=== PATIENT | female | born 1975 | race African-American/Black ===

== ENCOUNTER 2016-07-05 13:19 | Emergency (ER) | payer BC ==
[2016-07-05] MEDS ORDERED: Sodium Chloride 0.9% 10 ML Syringe FLUSH PRN (13:23)
[2016-07-05] MEDS ORDERED: Sodium Chloride 0.9% 2.5 ML Syringe FLUSH PRN (13:23)
[2016-07-05] MEDS ORDERED: Sodium Chloride 0.9% 1,000 ML IV ONE (13:24)
[2016-07-05] MEDS ORDERED: Famotidine 20 MG/2 ML SDV IVPUSH ONE (13:24)
[2016-07-05] MEDS ORDERED: diphenhydrAMINE 50 MG/ML SDV IVPUSH ONE (13:24)
[2016-07-05] MEDS ORDERED: methylPREDNISolone Sodium Succinate 125 MG/2 ML SDV IVPUSH ONE (13:24)
[2016-07-05] MEDS ORDERED: Racepinephrine 2.25% 0.5 ML Neb Soln NEB ONE (13:25)
--- NOTE | 2016-07-05 13:36 | EDM.PDOC ---
ED HPI Allergic Reaction - General Chief Complaint: Allergic Reaction Stated Complaint: ALLERGIC REACTION Time Seen by Provider: 07/05/16 13:23 Source of Information: Reports: Patient History Limitations: Reports: No limitations - History of Present Illness INITIAL COMMENTS - FREE TEXT/NARRATIVE: History of present illness: [] Patient awoke at 1 PM with difficulty breathing, she does not know she was exposed to anything. She does not know what she is allergic to, she can't talk to 2 hoarseness. Patient states she has several allergies and her response to all other meds her throat closing. She states she's allergic to peanuts however she and Mr. Ramires yesterday without any response. Review of systems: As per history of present illness and below otherwise all systems reviewed and negative. Past medical history: As per history of present illness and as reviewed below otherwise noncontributory. Surgical history: As per history of present illness and as reviewed below otherwise noncontributory. Social history: No reported history of drug or alcohol abuse. Family history: As per history of present illness and as reviewed below otherwise noncontributory. Physical exam: General: Well developed, well nourished in NAD HEENT: Atraumatic, normocephalic, pupils reactive, negative for conjunctival pallor or scleral icterus, mucous membranes moist, throat clear, no erythema there is swelling to the lateral sides pharynx, neck supple, nontender, trachea midline. No stridor Lungs: Clear to auscultation, breath sounds equal bilaterally, chest nontender. No wheezing Heart: S1S2, regular, negative for clicks, rubs, or JVD. Abdomen: Soft, nondistended, nontender. Negative for masses or hepatosplenomegaly. Negative for costovertebral tenderness. Pelvis: Stable nontender. Genitourinary: Deferred. Rectal: Deferred. Extremities: Atraumatic, negative for cords or calf pain. Neurovascular unremarkable. No rashes Neuro: Awake, alert, oriented. Cranial nerves II through XII unremarkable. Cerebellum unremarkable. Motor and sensory unremarkable throughout. Exam nonfocal. Diagnostics: [] Therapeutics: [] Racemic epi., Benadryl, Solu-Medrol, Pepcid given patient had immediate improvement after syncope. Impression: [] Anaphylactic response of unknown etiology Plan: [] Benadryl as needed EpiPen prescribed Definitive disposition and diagnosis as appropriate pending reevaluation and review of above. - Related Data Home Meds: Home Meds EPINEPHrine [Epipen 2-Jeremie] 0.3 mg IJ ASDIRECTED PRN #2 ml 07/05/16 [Rx] ED ROS ALLERGIC REACTION - Review of Systems Review Of Systems: See Below (See history of present illness) ED EXAM GENERAL NO PERIP PULSE - Physical Exam Exam: See Below (See history of present illness) Course - Vital Signs Last Recorded V/S: Last Vital Signs Temp 36.7 C 07/05/16 13:36 Pulse 94 07/05/16 13:36 Resp 20 07/05/16 13:36 BP 122/58 L 07/05/16 13:36 Pulse Ox 96 07/05/16 13:36 - Orders/Labs/Meds Orders: Active Orders 24 hr Category Date Time Status RT Aerosol Therapy [RC] ASDIRECTED Care 07/05/16 13:25 Active Sodium Chloride 0.9% [Normal Saline] 1,000 ml Med 07/05/16 13:24 Active IV .Bolus Sodium Chloride 0.9% [Saline Flush] Med 07/05/16 13:23 Active 10 ml FLUSH ASDIRECTED PRN Sodium Chloride 0.9% [Saline Flush] Med 07/05/16 13:23 Active 2.5 ml FLUSH ASDIRECTED PRN Peripheral IV Insertion Adult [OM.PC] Stat Oth 07/05/16 13:23 Ordered Medication Orders Sodium Chloride (Normal Saline) 1,000 mls @ 999 mls/hr IV .Bolus ONE Stop: 07/05/16 14:24 Last Admin: 07/05/16 13:30 Dose: 999 mls/hr Sodium Chloride (Saline Flush) 10 ml FLUSH ASDIRECTED PRN PRN Reason: Keep Vein Open Last Admin: 07/05/16 13:43 Dose: 10 ml Sodium Chloride (Saline Flush) 2.5 ml FLUSH ASDIRECTED PRN PRN Reason: Keep Vein Open Last Admin: 07/05/16 13:43 Dose: 2.5 ml Meds: Medications Generic Name Dose Route Start Last Admin Trade Name Freq PRN Reason Stop Dose Admin Sodium Chloride 1,000 mls @ 999 mls/hr 07/05/16 13:24 07/05/16 13:30 Normal Saline IV 07/05/16 14:24 999 mls/hr .Bolus ONE Administration Sodium Chloride 10 ml 07/05/16 13:23 07/05/16 13:43 Saline Flush FLUSH 10 ml ASDIRECTED PRN Administration Keep Vein Open Sodium Chloride 2.5 ml 07/05/16 13:23 07/05/16 13:43 Saline Flush FLUSH 2.5 ml ASDIRECTED PRN Administration Keep Vein Open Discontinued Medications Generic Name Dose Route Start Last Admin Trade Name Freq PRN Reason Stop Dose Admin Diphenhydramine HCl 50 mg 07/05/16 13:24 07/05/16 13:39 Benadryl IVPUSH 07/05/16 13:25 50 mg ONETIME ONE Administration Famotidine 20 mg 07/05/16 13:24 07/05/16 13:40 Pepcid IVPUSH 07/05/16 13:25 20 mg ONETIME ONE Administration Methylprednisolone Sodium Succinate 125 mg 07/05/16 13:24 07/05/16 13:42 Solu-Medrol IVPUSH 07/05/16 13:25 125 mg ONETIME ONE Administration Racepinephrine 0.5 ml 07/05/16 13:25 S-2 2.25% NEB 07/05/16 13:26 ONETIME ONE Departure - Departure Time of Disposition: 14:20 Disposition: Home, Self-Care 01 Condition: good Clinical Impression: Anaphylactic reaction Qualifiers: Encounter type: initial encounter Qualified Code(s): T78.2XXA - Anaphylactic shock, unspecified, initial encounter Prescriptions: EPINEPHrine [Epipen 2-Jeremie] 0.3 mg IJ ASDIRECTED PRN #2 ml PRN Reason: Shortness Of Breath Additional Instructions: The following information is given to patients seen in the emergency department who are being discharged to home. This information is to outline your options for follow-up care. We provide all patients seen in our emergency department with a follow-up referral. The need for follow-up, as well as the timing and circumstances, are variable depending upon the specifics of your emergency department visit. If you don't have a primary care physician on staff, we will provide you with a referral. We always advise you to contact your personal physician following an emergency department visit to inform them of the circumstance of the visit and for follow-up with them and/or the need for any referrals to a consulting specialist. The emergency department will also refer you to a specialist when appropriate. This referral assures that you have the opportunity for follow-up care with a specialist. All of these measure are taken in an effort to provide you with optimal care, which includes your follow-up. Under all circumstances we always encourage you to contact your private physician who remains a resource for coordinating your care. When calling for follow-up care, please make the office aware that this follow-up is from your recent emergency room visit. If for any reason you are refused follow-up, please contact the [facility] Emergency Department at and asked to speak to the emergency department charge nurse. [facility] [address] [place] [address] - My Orders Last 24 Hours: My Active Orders 07/05/16 13:23 Sodium Chloride 0.9% [Saline Flush] 10 ml FLUSH ASDIRECTED PRN Sodium Chloride 0.9% [Saline Flush] 2.5 ml FLUSH ASDIRECTED PRN Peripheral IV Insertion Adult [OM.PC] Stat 07/05/16 13:24 Sodium Chloride 0.9% [Normal Saline] 1,000 ml IV .Bolus 07/05/16 13:25 RT Aerosol Therapy [RC] ASDIRECTED - Assessment/Plan Last 24 Hours: My Active Orders 07/05/16 13:23 Sodium Chloride 0.9% [Saline Flush] 10 ml FLUSH ASDIRECTED PRN Sodium Chloride 0.9% [Saline Flush] 2.5 ml FLUSH ASDIRECTED PRN Peripheral IV Insertion Adult [OM.PC] Stat 07/05/16 13:24 Sodium Chloride 0.9% [Normal Saline] 1,000 ml IV .Bolus 07/05/16 13:25 RT Aerosol Therapy [RC] ASDIRECTED
[2016-07-05 14:52] VITALS: BP 111/68
== END 2016-07-05 14:49 | disposition home or self-care (01) ==
LOC: MW.ED 13:19
DX: T78.2XXA Anaphylactic shock, unspecified, initial encounter (principal)
CPT/HCPCS: 94664; 96361; 96374; 96375; 99285; J1200; J2930; J7040; 99284

== ENCOUNTER 2016-12-10 12:16 | Emergency (ER) | payer BC ==
[2016-12-10 12:25] VITALS: BP 110/64
[2016-12-10] MEDS ORDERED: Cetirizine 10 MG Tab PO ONE (12:39)
--- NOTE | 2016-12-10 12:39 | EDM.PDOC ---
[id number]: CHEST PAIN Time Seen by Provider: 12/10/16 12:27 Source of Information: Reports: Patient History Limitations: Reports: No Limitations - History of Present Illness INITIAL COMMENTS - FREE TEXT/NARRATIVE: History of present illness: []Patient works at [employer] and apparently a dog came into the store and she is allergic to dogs. He started wheezing and used or puffs of her inhaler and came to the ER for evaluation. Patient is scratching but does not have a rash Review of systems: As per history of present illness and below otherwise all systems reviewed and negative. Past medical history: As per history of present illness and as reviewed below otherwise noncontributory. Surgical history: As per history of present illness and as reviewed below otherwise noncontributory. Social history: No reported history of drug or alcohol abuse. Family history: As per history of present illness and as reviewed below otherwise noncontributory. Physical exam: General: Well developed, well nourished in NAD HEENT: Atraumatic, normocephalic, pupils reactive, negative for conjunctival pallor or scleral icterus, mucous membranes moist, throat clear, neck supple, nontender, trachea midline. Lungs: Clear to auscultation, breath sounds equal bilaterally, chest nontender. No wheezing or accessory muscle use Heart: S1S2, regular, negative for clicks, rubs, or JVD. Abdomen: Soft, nondistended, nontender. Negative for masses or hepatosplenomegaly. Negative for costovertebral tenderness. Pelvis: Stable nontender. Genitourinary: Deferred. Rectal: Deferred. Extremities: Atraumatic, negative for cords or calf pain. Neurovascular unremarkable. No rashes noted Neuro: Awake, alert, oriented. Cranial nerves II through XII unremarkable. Cerebellum unremarkable. Motor and sensory unremarkable throughout. Exam nonfocal. Diagnostics: [] Therapeutics: []Zyrtec given Impression: []Exposure to dogs which she is allergic to. Normal exam in the ED Plan: []The use inhaler as directed follow-up with primary care as needed Definitive disposition and diagnosis as appropriate pending reevaluation and review of above. - Related Data Allergies Allergy/AdvReac Type Severity Reaction Status Date / Time acetaminophen Allergy Swelling Verified 12/10/16 12:22 [From Tylenol-Codeine] codeine Allergy Swelling Verified 12/10/16 12:22 [From Tylenol-Codeine] Home Meds: Home Meds Albuterol Sulfate 1 dose INH ASDIRECTED PRN 12/10/16 [History] Albuterol Sulfate [Proair Hfa] 2 puff INH Q4HR PRN 12/10/16 [History] Fludrocortisone [Florinef] 0.1 mg PO BID 12/10/16 [History] Montelukast [Singulair] 10 mg PO DAILY 12/10/16 [History] SUMAtriptan [Imitrex] 100 mg PO ASDIRECTED 12/10/16 [History] Past Medical History Cardiovascular History: Reports: Syncope Respiratory History: Reports: Asthma - Infectious Disease History Infectious Disease History: Reports: Chicken Pox - Past Surgical History Female Surgical History: Reports: Oophorectomy Social & Family History - Family History Family Medical History: Noncontributory - Tobacco Use Smoking Status *Q: Never Smoker - Recreational Drug Use Recreational Drug Use: No ED ROS GENERAL - Review of Systems Review Of Systems: See Below (See history of present illness) ED EXAM, GENERAL - Physical Exam Exam: See Below (History of present illness) Course - Vital Signs Last Recorded V/S: Last Vital Signs Temp 36.2 C 12/10/16 12:19 Pulse 69 12/10/16 12:19 Resp 18 12/10/16 12:19 BP 110/64 12/10/16 12:19 Pulse Ox 99 12/10/16 12:19 - Orders/Labs/Meds Meds: Medications Discontinued Medications Generic Name Dose Route Start Last Admin Trade Name Freq PRN Reason Stop Dose Admin Cetirizine HCl 10 mg 12/10/16 12:39 Zyrtec PO 12/10/16 12:40 ONETIME ONE Departure - Departure Time of Disposition: 13:01 Disposition: Home, Self-Care 01 Condition: Good Clinical Impression: Allergic reaction Qualifiers: Encounter type: initial encounter Qualified Code(s): T78.40XA - Allergy, unspecified, initial encounter - Discharge Information Forms: ED Department Discharge Additional Instructions: The following information is given to patients seen in the emergency department who are being discharged to home. This information is to outline your options for follow-up care. We provide all patients seen in our emergency department with a follow-up referral. The need for follow-up, as well as the timing and circumstances, are variable depending upon the specifics of your emergency department visit. If you don't have a primary care physician on staff, we will provide you with a referral. We always advise you to contact your personal physician following an emergency department visit to inform them of the circumstance of the visit and for follow-up with them and/or the need for any referrals to a consulting specialist. The emergency department will also refer you to a specialist when appropriate. This referral assures that you have the opportunity for follow-up care with a specialist. All of these measure are taken in an effort to provide you with optimal care, which includes your follow-up. Under all circumstances we always encourage you to contact your private physician who remains a resource for coordinating your care. When calling for follow-up care, please make the office aware that this follow-up is from your recent emergency room visit. If for any reason you are refused follow-up, please contact the [facility] Emergency Department at and asked to speak to the emergency department charge nurse. Continue regular meds Zyrtec daily follow-up with PMD as needed [facility] [address] [place] [id number]
== END 2016-12-10 13:07 | disposition home or self-care (01) ==
LOC: EDBD 12:16 → MERGE 12:16 → MW.ED 12:16
DX: J30.81 Allergic rhinitis due to animal (cat) (dog) hair and dander (principal); Z79.899 Other long term (current) drug therapy; Z88.6 Allergy status to analgesic agent; Z88.5 Allergy status to narcotic agent
CPT/HCPCS: 99283; A9270; 99282

== ENCOUNTER 2017-05-29 07:52 | Emergency (ER) | payer BC ==
[2017-05-29] MEDS ORDERED: Sodium Chloride 0.9% 2.5 ML Syringe FLUSH PRN (08:18)
[2017-05-29] MEDS ORDERED: Sodium Chloride 0.9% 10 ML Syringe FLUSH PRN (08:18)
[2017-05-29] MEDS ORDERED: Ondansetron 4 MG/2 ML SDV IVPUSH ONE (08:18)
[2017-05-29] MEDS ORDERED: Sodium Chloride 0.9% 1,000 ML IV ONE (08:18)
--- NOTE | 2017-05-29 08:22 | EDM.PDOC ---
ED HPI GENERAL MEDICAL PROBLEM - General Chief Complaint: Neuro Symptoms/Deficits Stated Complaint: FAINTING Time Seen by Provider: 05/29/17 08:08 - History of Present Illness INITIAL COMMENTS - FREE TEXT/NARRATIVE: HISTORY AND PHYSICAL: History of present illness: The patient is a 41-year-old female who presents via EMS after having a syncopal event while at work at [employer]. According to the patient she has a long -standing history of cardiogenic syncope and she has been seen and evaluated in the past by a supervisor covering and lining in [place] and is currently on Florinef since 2005 for those problems. She intermittently will have fainting episodes which is not unusual or different for her and she usually can feel them coming on much as she did this morning. Patient says she has been vomiting all day yesterday and has not been tolerating much by mouth and felt somewhat woozy when she was with her area sales manager in a seated position. When she tried to get up her area sales manager noted her to pass out and she was assisted to the ground and had no trauma. The patient currently denies any head neck or back pain no chest pain and no shortness of breath but has nausea. She has not had diarrhea and has no abdominal pain. The patient also has a history of diverticulitis for which she was seen in our clinic several days ago and placed on Cipro and Flagyl for diverticulitis and has a history of the same. She's been taking his antibiotics and she's been on them in the past without problems. She also has a history of asthma and takes control pills. Patient denies any extremity pain or weakness and says that she has not connected here locally with a supervisor covering and lining for further care and evaluation. She currently denies any headache and has had no recent fevers Review of systems: As per history of present illness and below otherwise all systems reviewed and negative. Past medical history: As per history of present illness and as reviewed below otherwise noncontributory. Surgical history: As per history of present illness and as reviewed below otherwise noncontributory. Social history: No reported history of drug or alcohol abuse. Family history: As per history of present illness and as reviewed below otherwise noncontributory. Physical exam: General: Well-developed well-nourished female who is mildly overweight and nontoxic and vital signs of been reviewed by me HEENT: Atraumatic, normocephalic, pupils reactive, negative for conjunctival pallor or scleral icterus, mucous membranes moist, throat clear, neck supple, nontender, trachea midline. Lungs: Clear to auscultation, breath sounds equal bilaterally, chest nontender. Heart: S1S2, regular, negative for clicks, rubs, or JVD. Abdomen: Soft, nondistended, nontender. Negative for masses or hepatosplenomegaly. Negative for costovertebral tenderness. Pelvis: Stable nontender. Genitourinary: Deferred. Rectal: Deferred. Extremities: Atraumatic, negative for cords or calf pain. Neurovascular unremarkable. Full range of motion of all extremities without defects or deficits Neuro: Awake, alert, oriented. Cranial nerves II through XII unremarkable. Cerebellum unremarkable. Motor and sensory unremarkable throughout. Exam nonfocal. Diagnostics: EKG CBC CMP troponin d-dimer UA UCG chest x-ray orthostatic vitals Therapeutics: IV O2 monitor IV fluids Zofran All testing results were discussed with the patient and an observation admission was offered to her which she declines at this time. She says these events are not a typical for her with her history. She has not had any vomiting here and I will give her Zofran for home and encouraged her to hydrate rest and if any symptoms return to return to the ER. I've also advised her to get local follow-up care Impression: Syncopal event with recent history of vomiting and history of cardiogenic syncope improved stable Definitive disposition and diagnosis as appropriate pending reevaluation and review of above. - Related Data Allergies Allergy/AdvReac Type Severity Reaction Status Date / Time acetaminophen Allergy Swelling Verified 05/29/17 08:19 [From Tylenol-Codeine] codeine Allergy Swelling Verified 05/29/17 08:19 [From Tylenol-Codeine] Home Meds: Home Meds EPINEPHrine [Epipen 2-Jeremie] 0.3 mg IJ ASDIRECTED PRN #2 ml 07/05/16 [Rx] Albuterol Sulfate [Proair Hfa] 2 puff INH Q4HR PRN 12/10/16 [History] Fludrocortisone [Florinef] 0.1 mg PO BID 12/10/16 [History] Montelukast [Singulair] 10 mg PO DAILY 12/10/16 [History] SUMAtriptan [Imitrex] 100 mg PO ASDIRECTED PRN 12/10/16 [History] Budesonide/Formoterol [Symbicort 160-4.5 MCG] 2 puff INH DAILY 05/29/17 [History ] Past Medical History - Past Health History Medical/Surgical History: Denies Medical/Surgical History Cardiovascular History: Reports: Syncope Respiratory History: Reports: Asthma - Infectious Disease History Infectious Disease History: Reports: Chicken Pox - Past Surgical History Female Surgical History: Reports: Oophorectomy Social & Family History - Family History Family Medical History: Noncontributory - Tobacco Use Smoking Status *Q: Never Smoker - Recreational Drug Use Recreational Drug Use: No ED ROS GENERAL - Review of Systems Review Of Systems: ROS reveals no pertinent complaints other than HPI. ED EXAM, GENERAL - Physical Exam Exam: See Below (See dictation) Course - Vital Signs Last Recorded V/S: Last Vital Signs Temp 36.3 C 05/29/17 08:14 Pulse 78 05/29/17 10:03 Resp 18 05/29/17 10:03 BP 100/63 05/29/17 10:03 Pulse Ox 100 05/29/17 10:03 Orthostatic Blood Pressure [ 104/62 Standing] Orthostatic Blood Pressure [ 105/67 Sitting] Orthostatic Blood Pressure [ 105/63 Supine] - Orders/Labs/Meds Orders: Active Orders 24 hr Category Date Time Status Blood Glucose Check, Bedside [RC] ONETIME Care 05/29/17 08:17 Active Cardiac Monitoring [RC] . DIRECTED Care 05/29/17 08:17 Active EKG Documentation Completion [RC] STAT Care 05/29/17 08:17 Active Orthostatic Vital Signs [RC] ASDIRECTED Care 05/29/17 08:18 Active Oxygen Therapy, ED [RC] ASDIRECTED Care 05/29/17 08:17 Active Pulse Oximetry [RC] ASDIRECTED Care 05/29/17 08:17 Active Sodium Chloride 0.9% [Saline Flush] Med 05/29/17 08:18 Active 10 ml FLUSH ASDIRECTED PRN Sodium Chloride 0.9% [Saline Flush] Med 05/29/17 08:18 Active 2.5 ml FLUSH ASDIRECTED PRN Saline Lock Insert [OM.PC] Stat Oth 05/29/17 08:17 Ordered Medication Orders Sodium Chloride (Saline Flush) 10 ml FLUSH ASDIRECTED PRN PRN Reason: Keep Vein Open Sodium Chloride (Saline Flush) 2.5 ml FLUSH ASDIRECTED PRN PRN Reason: Keep Vein Open Labs: Laboratory Tests 05/29/17 05/29/17 05/29/17 Range/Units 08:31 08:31 08:31 WBC 6.39 (4.0-11.0) K/uL RBC 4.56 (4.30-5.90) M/uL Hgb 14.1 (12.0-16.0) g/dL Hct 40.2 (36.0-46.0) % MCV 88.2 (80.0-98.0) fL MCH 30.9 (27.0-32.0) pg MCHC 35.1 (31.0-37.0) g/dL RDW Std Deviation 44.4 (28.0-62.0) fl RDW Coeff of Breanna 14 (11.0-15.0) % Plt Count 298 (150-400) K/uL MPV 9.90 (7.40-12.00) fL Neut % (Auto) 42.6 L (48.0-80.0) % Lymph % (Auto) 41.8 H (16.0-40.0) % Sterling % (Auto) 12.4 (0.0-15.0) % Eos % (Auto) 2.7 (0.0-7.0) % Baso % (Auto) 0.5 (0.0-1.5) % Neut # (Auto) 2.7 (1.4-5.7) K/uL Lymph # (Auto) 2.7 H (0.6-2.4) K/uL Sterling # (Auto) 0.8 (0.0-0.8) K/uL Eos # (Auto) 0.2 (0.0-0.7) K/uL Baso # (Auto) 0.0 (0.0-0.1) K/uL Nucleated RBC % 0.0 /100WBC Nucleated RBCs # 0 K/uL D-Dimer, Quantitative 0.63 H (0.0-0.52) mg/LFEU Sodium 137 (136-146) mmol/L Potassium 3.8 (3.5-5.1) mmol/L Chloride 107 (98-110) mmol/L Carbon Dioxide 21 (21-31) mmol/L BUN 13 (6.0-23.0) mg/dL Creatinine 0.9 (0.6-1.5) mg/dL Est Cr Clr Drug Dosing 78.38 mL/min Estimated GFR (MDRD) > 60.0 ml/min Glucose 102 (60-110) mg/dL POC Glucose (60-110) mg/dL Calcium 9.0 (8.8-10.8) mg/dL Total Bilirubin 0.3 (0.1-1.5) mg/dL AST 27 (5-40) IU/L ALT 25 (8-54) IU/L Alkaline Phosphatase 65 (40-150) Troponin I < 0.10 (0.0-0.29) NG/ML Total Protein 7.4 (6.0-8.0) g/dL Albumin 4.3 (3.5-5.0) g/dL Globulin 3.1 (2.0-3.5) g/dL Albumin/Globulin Ratio 1.4 (1.3-2.8) Urine Color Urine Appearance Urine pH (5.0-8.0) Ur Specific Faith (1.001-1.035) Urine Protein (NEGATIVE) mg/dL Urine Glucose (UA) (NEGATIVE) mg/dL Urine Ketones (NEGATIVE) mg/dL Urine Occult Blood (NEGATIVE) Urine Nitrite (NEGATIVE) Urine Bilirubin (NEGATIVE) Urine Urobilinogen (<2.0) EU/dL Ur Leukocyte Esterase (NEGATIVE) Urine RBC (0-2/HPF) Urine WBC (0-5/HPF) Ur Epithelial Cells (NONE-FEW) Urine Bacteria (NEGATIVE) Urine Mucus (NONE-MOD) Urine HCG, Qual (NEGATIVE) 05/29/17 05/29/17 05/29/17 Range/Units 08:36 08:36 08:56 WBC (4.0-11.0) K/uL RBC (4.30-5.90) M/uL Hgb (12.0-16.0) g/dL Hct (36.0-46.0) % MCV (80.0-98.0) fL MCH (27.0-32.0) pg MCHC (31.0-37.0) g/dL RDW Std Deviation (28.0-62.0) fl RDW Coeff of Breanna (11.0-15.0) % Plt Count (150-400) K/uL MPV (7.40-12.00) fL Neut % (Auto) (48.0-80.0) % Lymph % (Auto) (16.0-40.0) % Sterling % (Auto) (0.0-15.0) % Eos % (Auto) (0.0-7.0) % Baso % (Auto) (0.0-1.5) % Neut # (Auto) (1.4-5.7) K/uL Lymph # (Auto) (0.6-2.4) K/uL Sterling # (Auto) (0.0-0.8) K/uL Eos # (Auto) (0.0-0.7) K/uL Baso # (Auto) (0.0-0.1) K/uL Nucleated RBC % /100WBC Nucleated RBCs # K/uL D-Dimer, Quantitative (0.0-0.52) mg/LFEU Sodium (136-146) mmol/L Potassium (3.5-5.1) mmol/L Chloride (98-110) mmol/L Carbon Dioxide (21-31) mmol/L BUN (6.0-23.0) mg/dL Creatinine (0.6-1.5) mg/dL Est Cr Clr Drug Dosing mL/min Estimated GFR (MDRD) ml/min Glucose (60-110) mg/dL POC Glucose 85 (60-110) mg/dL Calcium (8.8-10.8) mg/dL Total Bilirubin (0.1-1.5) mg/dL AST (5-40) IU/L ALT (8-54) IU/L Alkaline Phosphatase (40-150) Troponin I (0.0-0.29) NG/ML Total Protein (6.0-8.0) g/dL Albumin (3.5-5.0) g/dL Globulin (2.0-3.5) g/dL Albumin/Globulin Ratio (1.3-2.8) Urine Color YELLOW Urine Appearance CLEAR Urine pH 5.5 (5.0-8.0) Ur Specific Faith >= 1.030 (1.001-1.035) Urine Protein NEGATIVE (NEGATIVE) mg/dL Urine Glucose (UA) NEGATIVE (NEGATIVE) mg/dL Urine Ketones TRACE H (NEGATIVE) mg/dL Urine Occult Blood TRACE-INTACT (NEGATIVE) Urine Nitrite NEGATIVE (NEGATIVE) Urine Bilirubin NEGATIVE (NEGATIVE) Urine Urobilinogen 0.2 (<2.0) EU/dL Ur Leukocyte Esterase TRACE (NEGATIVE) Urine RBC 0-2 (0-2/HPF) Urine WBC 0-1 (0-5/HPF) Ur Epithelial Cells OCCASIONAL (NONE-FEW) Urine Bacteria RARE (NEGATIVE) Urine Mucus LIGHT (NONE-MOD) Urine HCG, Qual NEGATIVE (NEGATIVE) Meds: Medications Generic Name Dose Route Start Last Admin Trade Name Freq PRN Reason Stop Dose Admin Sodium Chloride 10 ml 05/29/17 08:18 Saline Flush FLUSH ASDIRECTED PRN Keep Vein Open Sodium Chloride 2.5 ml 05/29/17 08:18 Saline Flush FLUSH ASDIRECTED PRN Keep Vein Open Discontinued Medications Generic Name Dose Route Start Last Admin Trade Name Freq PRN Reason Stop Dose Admin Sodium Chloride 1,000 mls @ 999 mls/hr 05/29/17 08:18 05/29/17 08:38 Normal Saline IV 05/29/17 09:18 999 mls/hr STAT ONE Administration Iopamidol 50 ml 05/29/17 09:21 05/29/17 09:22 Isovue Multipack-370 (76%) IVPUSH 05/29/17 09:22 50 ml ONETIME STA Administration Ondansetron HCl 4 mg 05/29/17 08:18 05/29/17 08:38 Zofran IVPUSH 05/29/17 08:19 4 mg ONETIME ONE Administration Departure - Departure Time of Disposition: 10:29 Disposition: Home, Self-Care 01 Condition: Good Clinical Impression: Syncope Qualifiers: Syncope type: unspecified Qualified Code(s): R55 - Syncope and collapse Vomiting Qualifiers: Vomiting type: unspecified Vomiting Intractability: non-intractable Nausea presence: with nausea Qualified Code(s): R11.2 - Nausea with vomiting, unspecified - Discharge Information Forms: ED Department Discharge Additional Instructions: The following information is given to patients seen in the emergency department who are being discharged to home. This information is to outline your options for follow-up care. We provide all patients seen in our emergency department with a follow-up referral. The need for follow-up, as well as the timing and circumstances, are variable depending upon the specifics of your emergency department visit. If you don't have a primary care physician on staff, we will provide you with a referral. We always advise you to contact your personal physician following an emergency department visit to inform them of the circumstance of the visit and for follow-up with them and/or the need for any referrals to a consulting specialist. The emergency department will also refer you to a specialist when appropriate. This referral assures that you have the opportunity for followup care with a specialist. All of these measure are taken in an effort to provide you with optimal care, which includes your followup. Under all circumstances we always encourage you to contact your private physician who remains a resource for coordinating your care. When calling for followup care, please make the office aware that this follow-up is from your recent emergency room visit. If for any reason you are refused follow-up, please contact the [facility] emergency department at and ask to speak to the emergency department charge nurse. [facility] Primary care- Internal Medicine and Family [address] [address] Please push hydration and use Zofran you have been prescribed for any nausea or vomiting that you may have. Rest and please call and schedule a follow-up appointment in our clinic as we discussed for further care and evaluation. Return to ER as needed as discussed - My Orders Last 24 Hours: My Active Orders 05/29/17 08:17 Blood Glucose Check, Bedside [RC] ONETIME Cardiac Monitoring [RC] . DIRECTED EKG Documentation Completion [RC] STAT Oxygen Therapy, ED [RC] ASDIRECTED Pulse Oximetry [RC] ASDIRECTED Saline Lock Insert [OM.PC] Stat 05/29/17 08:18 Orthostatic Vital Signs [RC] ASDIRECTED Sodium Chloride 0.9% [Saline Flush] 10 ml FLUSH ASDIRECTED PRN Sodium Chloride 0.9% [Saline Flush] 2.5 ml FLUSH ASDIRECTED PRN - Assessment/Plan Last 24 Hours: My Active Orders 05/29/17 08:17 Blood Glucose Check, Bedside [RC] ONETIME Cardiac Monitoring [RC] . DIRECTED EKG Documentation Completion [RC] STAT Oxygen Therapy, ED [RC] ASDIRECTED Pulse Oximetry [RC] ASDIRECTED Saline Lock Insert [OM.PC] Stat 05/29/17 08:18 Orthostatic Vital Signs [RC] ASDIRECTED Sodium Chloride 0.9% [Saline Flush] 10 ml FLUSH ASDIRECTED PRN Sodium Chloride 0.9% [Saline Flush] 2.5 ml FLUSH ASDIRECTED PRN
[2017-05-29 09:02] LABS: CHLORIDE,CL 107 mmol/L (98-110); SODIUM,NA 137 mmol/L (136-146)
[2017-05-29] MEDS ORDERED: Iopamidol 755 MG/ML 500 ML Multipack Bottle IVPUSH STA (09:21)
--- NOTE | 2017-05-29 10:13 | CR ---
EXAM DATE: 05/29/17 PATIENT'S AGE: 41 Patient: TEO FARRIS Facility: [place], [place] Site . Site : [id number] Study: XRay Chest [id number]/1/2018 9:28:58 AM Ordering Physician: Rosalba Iraheta Final Report: INDICATION: PAIN/SOB Single AP view Findings: The lungs are clear. Pulmonary vascularity, mediastinum and cardiac silhouette are within normal limits. No effusions and no pneumothorax. Osseous structures appear unremarkable. Impression: No evidence of acute cardiopulmonary disease. Dictated by: Gabe Brown MD @ 05/29/2017 09:42:29 (Electronic Signature) Report Signed by Proxy. MIKE
--- NOTE | 2017-05-29 10:24 | CT ---
CT chest with PE protocol Clinical history: Rule out pulmonary Patience M Comparison: Plain chest radiograph May 29, 2017 Findings: Multiple high resolution contrast enhanced images were acquired after 70 mL of Isovue-370 w as administered intravenously. There is moderate cardiomegaly. There is no pericardial effusion. The pulmonary parenchymal windows s how no abnormalities. The images of the vasculature are exquisitely derived and demonstrate no evidence of PE. The chest wall and axillary regions are normal. No significant osseous abnormalities are seen. Impression: No CT evidence of pulmonary embolism. Mild cardiomegaly
[2017-05-29 10:45] VITALS: BP 107/66
== END 2017-05-29 10:49 | disposition home or self-care (01) ==
LOC: MW.ED 07:52
DX: R55 Syncope and collapse (principal); R11.2 Nausea with vomiting, unspecified; J45.909 Unspecified asthma, uncomplicated; Z79.899 Other long term (current) drug therapy; Z88.5 Allergy status to narcotic agent; Z88.6 Allergy status to analgesic agent
CPT/HCPCS: 36415; 71045; 71275; 80053; 81001; 81025; 82962; 84484; 85025; 85379; 93005; 96361; 96374; 99285; J2405; J7040; Q9967; 99284

== ENCOUNTER 2022-03-27 05:13 | Emergency (ER) | payer BC ==
[2022-03-27] MEDS ORDERED: Sodium Chloride 0.9% 1,000 ML IV ONE (05:43)
[2022-03-27] MEDS ORDERED: Ondansetron 4 MG/2 ML SDV IVPUSH ONE (05:43)
[2022-03-27] MEDS ORDERED: Ketorolac 30 MG/ML SDV IVPUSH ONE (05:43)
[2022-03-27 06:30] LABS: CARBON DIOXIDE,CO2 25.3 mmol/L (21.0-32.0)
[2022-03-27 08:46] VITALS: BP 119/71; PULSE 72
== END 2022-03-27 08:46 | disposition home or self-care (01) ==
LOC: MW.ED 05:13
DX: R10.31 Right lower quadrant pain (principal); J45.909 Unspecified asthma, uncomplicated; Z88.5 Allergy status to narcotic agent; Z90.722 Acquired absence of ovaries, bilateral
CPT/HCPCS: 36415; 74176; 80053; 81001; 81025; 83690; 85025; 96361; 96374; 96375; 99284; J1885; J2405; J7030

== ENCOUNTER 2022-09-04 09:50 | Emergency (ER) | payer BC ==
[2022-09-04] MEDS ORDERED: Prochlorperazine 10 MG/2 ML SDV IVPUSH ONE (10:12)
[2022-09-04] MEDS ORDERED: Acetaminophen 325 MG Tab PO ONE (10:12)
[2022-09-04] MEDS ORDERED: Lactated Ringers 1,000 ML IV ONE (10:12)
[2022-09-04] MEDS ORDERED: diphenhydrAMINE 50 MG/ML SDV IVPUSH ONE (10:12)
[2022-09-04 10:52] LABS: BASOPHILS PERCENT AUTO 0.7 % (0.0-1.5); EOSINOPHILS ABSOLUTE AUTO 0.1 K/uL (0.0-0.7); EOSINOPHILS PERCENT AUTO 2.1 % (0.0-7.0); HEMATOCRIT 38.3 % (36.0-46.0); HEMOGLOBIN 13.4 g/dL (12.0-16.0); LYMPHOCYTES ABSOLUTE AUTO 2.7 K/uL (0.6-2.4); MEAN CORPUSCULAR HEMOGLOBIN 31.5 pg (27.0-32.0); MEAN CORPUSCULAR VOLUME 90.1 fL (80.0-98.0); MONOCYTES ABSOLUTE AUTO 0.6 K/uL (0.0-0.8); MONOCYTES PERCENT AUTO 11.1 % (0.0-15.0); NEUTROPHILS ABSOLUTE AUTO 2.1 K/uL (1.4-5.7); NEUTROPHILS PERCENT AUTO 38.1 % (48.0-80.0); PLATELET COUNT,PLT 298 K/uL (150-400); RED BLOOD CELL COUNT 4.25 M/uL (4.30-5.90)
[2022-09-04 11:23] LABS: ALANINE AMINOTRANSFERASE,ALT 26 IU/L (14-63); ALBUMIN 3.6 g/dL (3.4-5.0); ALKALINE PHOSPHATASE 76 U/L (46-116); ASPARTATE AMNIOTRANSFERASE,AST 17 IU/L (15-37); BILIRUBIN TOTAL 0.5 mg/dL (0.2-1.0); BLOOD UREA NITROGEN,BUN 9 mg/dL (7.0-18.0); CALCIUM 8.7 mg/dL (8.5-10.1); CARBON DIOXIDE,CO2 27.4 mmol/L (21.0-32.0); CHLORIDE,CL 104 mmol/L (98-107); CREATININE 0.9 mg/dL (0.6-1.0); EST CRCL DRUG DOSING (CG) 73.53 mL/min; GLUCOSE RANDOM 92 mg/dL (74-106); POTASSIUM,K 3.5 mmol/L (3.5-5.1); PROTEIN TOTAL,TP 7.2 g/dL (6.4-8.2); SODIUM,NA 140 mmol/L (136-145)
[2022-09-04 11:27] LABS: ESTIMATED GFR 78 mL/min (>60)
[2022-09-04 11:28] LABS: CORONAVIRUS COVID-19 NAA NEGATIVE (NEGATIVE); INFLUENZA A NAA NEGATIVE (NEGATIVE); INFLUENZA B NAA NEGATIVE (NEGATIVE); RESPIRATORY SYNCYTIAL VIR NAA NEGATIVE (NEGATIVE)
[2022-09-04 13:19] VITALS: BP 115/75; PULSE 68
== END 2022-09-04 13:23 | disposition home or self-care (01) ==
LOC: MW.ED 09:50
DX: R51.9 Headache, unspecified (principal); R55 Syncope and collapse; Z88.5 Allergy status to narcotic agent; Z20.822 Contact with and (suspected) exposure to COVID-19
CPT/HCPCS: 0241U; 36415; 70450; 80053; 84484; 84703; 85025; 93005; 96361; 96374; 96375; 99284; A9270; J0780; J1200; J7120; 93010

== ENCOUNTER 2023-05-16 16:11 | Emergency (ER) | payer BC ==
[2023-05-16 17:18] VITALS: BP 114/68; PULSE 105
== END 2023-05-16 18:33 | disposition home or self-care (01) ==
LOC: MW.ED 16:11
DX: R51.9 Headache, unspecified (principal); Z88.5 Allergy status to narcotic agent
CPT/HCPCS: 70450; 70450-26; 99282; 99283